=== PATIENT | female | born 1955 | race Caucasian/White ===

== ENCOUNTER 2022-07-16 13:49 | Outpatient (CLI) | payer MEDICARE, OTHER | END 2022-07-16 13:50 | disposition home or self-care (01) | LOC: CSHRAD 13:49 | PROVIDERS: ATTEND Neurological Surgery | DX: M54.6 Pain in thoracic spine (principal); M47.814 Spondylosis without myelopathy or radiculopathy, thoracic region | CPT/HCPCS: 72072 ==

== ENCOUNTER 2022-10-25 13:08 | Outpatient (CLI) | payer MEDICARE, OTHER | END 2022-10-25 13:09 | disposition home or self-care (01) | LOC: CSHWCC 13:08 | PROVIDERS: ATTEND Nurse Practitioner Family | DX: L89.321 Pressure ulcer of left buttock, stage 1 (principal) | CPT/HCPCS: 97139; G0463; 99203 ==